=== PATIENT | male | born 1950 | race Two or more races ===

== ENCOUNTER 2024-03-02 20:23 | Inpatient (IN) | payer MEDICARE, MEDICAID ==
[~2024-03-02] VITALS: Ht 162.6 cm; Wt 59.4 kg
[2024-03-02 22:25] LABS: Basophils # (auto) 0 10 ^3/uL (0-0.2); Eosinophils # (auto) 0 10 ^3/uL (0-0.8); Lymphocytes # (auto) 1.4 10 ^3/uL (0.4-5.4); Mean Corpuscular Volume 81.3 fL (80.0-100.0); Monocytes # (auto) 0.5 10 ^3/uL (0-1.3); White Blood Cell 8.9 10^3/uL (4.4-10.8)
[2024-03-02 22:27] LABS: Basophils % (auto) 0.3 % (0.0-2.0); Eosinophils % (auto) 0.2 % (0.0-7.0); Hematocrit 45.9 % (41.0-53.0); Hemoglobin 14.8 g/dL (13.5-17.5); Lymphocytes % (auto) 15.8 % (10.0-50.0); Mean Corpuscular Hemoglobin 26.2 pg (28.0-32.0); Mean Corpuscular Hgb Conc. 32.2 g/dL (32.0-36.0); Monocytes % (auto) 5.4 % (0.0-12.0); Neutrophils % (auto) 78.3 % (37.0-80.0); Nucleated Red Blood Cells % 0.3 %; Red Blood Cells 5.65 10^6/uL (4.5-5.90); Red Cell Distribution Width 17.4 % (11.8-14.3)
[2024-03-02 22:40] LABS: Alanine Aminotransferase 104 U/L (7-40); Alkaline Phosphatase 102 U/L (46-116); Anion Gap 10 (5-15); Aspartate Aminotransferase 166 U/L (13-40); BUN/Creatinine Ratio 14.9 (10.0-20.0); Blood Urea Nitrogen 26 mg/dL (9-23); Calcium 10.3 mg/dL (8.7-10.4); Carbon Dioxide 19 mmol/L (20-30); Chloride 102 mmol/L (98-107); Glucose 112 mg/dL (74-106); Sodium 131 mmol/L (136-145)
[2024-03-02 22:41] LABS: Albumin 4.4 g/dL (3.2-4.8); Total Protein 7.8 g/dL (5.7-8.2)
[2024-03-02 23:04] LABS: Potassium 5.6 mmol/L (3.5-5.1)
[2024-03-03 00:27] VITALS: PULSE 113; RESP 19
[2024-03-03 00:40] LABS: INR 1.5 (0.9-1.15); Prothrombin Time 15.4 sec (9.3-11.8)
[2024-03-03] MEDS: IOHEXOL 350 MG/ML 100ML IJ ONE (01:04)
[2024-03-03] MEDS: FUROSEMIDE 40 MG/4 ML VIAL IV ONE (01:19)
[2024-03-03] MEDS: PIPERACILLIN-TAZOB 3.375GM 100 ML IV ONE (01:20)
[2024-03-03] MEDS ORDERED: LABETALOL HCL 5 MG/ML 4ML SYRINGE IV PRN (04:00)
[2024-03-03] MEDS ORDERED: NITROGLYCERIN 0.4 MG SL TAB SL PRN (04:00)
[2024-03-03] MEDS ORDERED: ACETAMINOPHEN 325 MG TAB PO PRN (04:00)
[2024-03-03] MEDS ORDERED: MORPHINE SULFATE INJ 2 MG/ml SYRG IV PRN (04:00)
[2024-03-03] MEDS: SODIUM ZIRCONIUM CYCL 10 GM PAK PO ONE (04:33)
[2024-03-03] MEDS: LEVOTHYROXINE SODIUM 25 MCG TAB PO SCH (06:15)
[2024-03-03] MEDS ORDERED: ALBUTEROL SULF 2.5 MG/0.5ML(0.5%) NEB SOLN NEB PRN (07:15)
[2024-03-03] MEDS: cefTRIAXone 1GM/50ML D5W 50 ML IV SCH (09:10)
[2024-03-03] MEDS: AZITHROMYCIN 500MG/ 250ML 250 ML IV SCH (09:36)
[2024-03-03] MEDS: CARVEDILOL 12.5 MG TAB PO SCH (09:36)
[2024-03-03] MEDS: ASPirin 81 mg TAB PO SCH (09:36)
[2024-03-03] MEDS: EMPAGLIFLOZIN 10 MG TAB PO SCH (09:37)
[2024-03-03] MEDS: amLODIPine BESYLATE 5 MG TAB PO SCH (09:37)
[2024-03-03] MEDS: levETIRAcetam 500 MG TAB PO SCH (09:37)
[2024-03-03] MEDS: ENOXAPARIN SOD 30 MG/0.3 ML SYRINGE SC SCH (09:37)
[2024-03-03 10:24] VITALS: BP 153/119; PULSE 107; RESP 16; TEMP 98.2; O2SAT 98
[2024-03-03 10:30] VITALS: O2SAT 98
[2024-03-03] MEDS: ONDANSETRON HCL 4 MG/2 ML VIAL IV PRN (12:38)
[2024-03-03 13:34] LABS: Chloride 101 mmol/L (98-107); Potassium 4.9 mmol/L (3.5-5.1); Sodium 133 mmol/L (136-145)
[2024-03-03 13:35] LABS: Anion Gap 11 (5-15); Carbon Dioxide 21 mmol/L (20-30)
[2024-03-03 13:36] LABS: Calcium 9.4 mg/dL (8.7-10.4)
[2024-03-03 13:41] LABS: BUN/Creatinine Ratio 20.4 (10.0-20.0); Glucose 105 mg/dL (74-106)
[2024-03-03 13:49] LABS: Blood Urea Nitrogen 38 mg/dL (9-23)
[2024-03-03] MEDS: TAMSULOSIN HYDROCHLORIDE 0.4 MG CAP PO SCH (17:17)
[2024-03-03] MEDS: FUROSEMIDE 20 MG/2 ML VIAL IV SCH (17:17)
[2024-03-03 19:30] VITALS: PULSE 78; RESP 21; O2SAT 98
[2024-03-03 20:00] VITALS: O2SAT 98
[2024-03-04] VITALS (10 sets, daily range): BP systolic 99–130; BP diastolic 71–93; PULSE 70–79; RESP 14–19; TEMP 97.3–98; O2SAT 92–100
[2024-03-04 06:45] LABS: Urine Bacteria FEW /hpf (None Seen); Urine Blood TRACE /uL (Negative); Urine Clarity Clear (Clear); Urine Color Yellow (Yellow); Urine Protein, UAD TRACE (Negative); Urine Specific Gravity 1.028 (1.001-1.035); Urine Urobilinogen 2 mg/dL (Negative); Urine WBC 1 /hpf (0 - 3); Urine pH 5.5 (5.0-9.0)
[2024-03-04 07:19] LABS: Basophils # (auto) 0 10 ^3/uL (0-0.2); Basophils % (auto) 0.2 % (0.0-2.0); Eosinophils # (auto) 0 10 ^3/uL (0-0.8); Eosinophils % (auto) 0.5 % (0.0-7.0); Hematocrit 41.5 % (41.0-53.0); Hemoglobin 13.5 g/dL (13.5-17.5); Lymphocytes % (auto) 14.6 % (10.0-50.0); Mean Corpuscular Hemoglobin 26.3 pg (28.0-32.0); Mean Corpuscular Hgb Conc. 32.4 g/dL (32.0-36.0); Mean Corpuscular Volume 81.3 fL (80.0-100.0); Monocytes # (auto) 0.4 10 ^3/uL (0-1.3); Neutrophils # (auto) 5.6 10 ^3/uL (1.6-8.6); Neutrophils % (auto) 78.7 % (37.0-80.0); Nucleated Red Blood Cells % 0.1 %; Red Blood Cells 5.11 10^6/uL (4.5-5.90); Red Cell Distribution Width 17.2 % (11.8-14.3); White Blood Cell 7.2 10^3/uL (4.4-10.8)
[2024-03-04 07:39] LABS: Amphetamine Screen, Urine Neg (NEGATIVE); Benzodiazephine Screen, Urine Neg (NEGATIVE)
[2024-03-04 07:40] LABS: Barbiturate Scree,Urine Neg (NEGATIVE); Cocaine Screen, Urine Neg (NEGATIVE); Opiate Scree,Urine Neg (NEGATIVE)
[2024-03-04 07:41] LABS: Cannabinoid Screen, Urine Pos (NEGATIVE); Phencyclidine Screen, Urine Neg (NEGATIVE)
[2024-03-04 07:45] LABS: Alanine Aminotransferase 68 U/L (7-40); Alkaline Phosphatase 83 U/L (46-116); Anion Gap 8 (5-15); BUN/Creatinine Ratio 21.8 (10.0-20.0); Blood Urea Nitrogen 37 mg/dL (9-23); Calcium 8.7 mg/dL (8.5-10.1); Carbon Dioxide 23 mmol/L (20-30); Chloride 102 mmol/L (98-107); Glucose 81 mg/dL (74-106); Potassium 4.4 mmol/L (3.5-5.1); Sodium 133 mmol/L (136-145)
[2024-03-04 07:46] LABS: Albumin 2.9 g/dL (3.2-4.8); Aspartate Aminotransferase 123 U/L (13-40); Bilirubin, Total 1.4 mg/dL (0.2-1.0)
[2024-03-04] MEDS: LISINOPRIL 5 MG TAB PO SCH (15:08)
[2024-03-04] MEDS ORDERED: CARI1CAP PO (16:25)
[2024-03-04] MEDS ORDERED: DAPA1TAB4 PO (16:25)
[2024-03-04] MEDS ORDERED: MIRA50TA OR (16:25)
[2024-03-04] MEDS ORDERED: CHOL20007 OR (16:25)
[2024-03-04] MEDS ORDERED: VERI2.5T PO (16:25)
[2024-03-04] MEDS ORDERED: CARI-578 PO (16:25)
[2024-03-04] MEDS ORDERED: TERI600I SC (16:25)
[2024-03-04] MEDS ORDERED: ASPI1TAB20 PO (16:25)
[2024-03-04] MEDS ORDERED: LINA1CAP2 PO (16:25)
[2024-03-04] MEDS ORDERED: FINE20TA PO (16:25)
[2024-03-04] MEDS ORDERED: FLUT1AER17 IN (16:25)
[2024-03-05] VITALS (10 sets, daily range): BP systolic 97–134; BP diastolic 68–84; PULSE 68–85; RESP 17–20; TEMP 97.4–97.9; O2SAT 93–98
[2024-03-05 05:16] LABS: Anion Gap 9 (5-15); Carbon Dioxide 23 mmol/L (20-30); Chloride 101 mmol/L (98-107); Potassium 3.7 mmol/L (3.5-5.1); Sodium 133 mmol/L (136-145)
[2024-03-05 05:17] LABS: Calcium 8.6 mg/dL (8.7-10.4)
[2024-03-05 05:22] LABS: BUN/Creatinine Ratio 16.7 (10.0-20.0); Blood Urea Nitrogen 27 mg/dL (9-23); Glucose 91 mg/dL (74-106)
[2024-03-05] MEDS ORDERED: FURO1TAB33 PO (14:54)
[2024-03-06 05:00] VITALS: BP 112/78; PULSE 69; RESP 20; TEMP 98.2; O2SAT 97
[2024-03-06 07:15] VITALS: O2SAT 98
[2024-03-06 07:39] LABS: Chloride 100 mmol/L (98-107); Potassium 3.6 mmol/L (3.5-5.1); Sodium 134 mmol/L (136-145)
[2024-03-06 07:40] LABS: Anion Gap 3 (5-15); Calcium 9.1 mg/dL (8.5-10.1); Carbon Dioxide 31 mmol/L (20-30)
[2024-03-06 07:45] LABS: BUN/Creatinine Ratio 16.5 (10.0-20.0); Blood Urea Nitrogen 26 mg/dL (9-23)
[2024-03-06 07:49] LABS: Glucose 38 mg/dL (74-106)
[2024-03-06 08:00] VITALS: PULSE 69; PULSE 73; RESP 20; O2SAT 97
[2024-03-06 09:00] VITALS: BP 96/69; PULSE 79; RESP 18; TEMP 97.7; O2SAT 99
[2024-03-06 10:00] VITALS: BP 96/69; PULSE 67; RESP 16; O2SAT 98; O2SAT 99
[2024-03-06 10:51] VITALS: BP 96/69; PULSE 79; RESP 18; TEMP 97.7; O2SAT 99
== END 2024-03-06 11:30 | disposition home or self-care (01) | DRG 177 ==
LOC: ER 20:23 → TELE 03-03 04:06 → TELE-WESTW 03-03 23:20
PROVIDERS: ADMIT Nurse Practitioner; ATTEND Internal Medicine
DX: J15.69 Pneumonia due to other Gram-negative bacteria (principal); I21.A1 Myocardial infarction type 2; J96.01 Acute respiratory failure with hypoxia; I50.43 Acute on chronic combined systolic (congestive) and diastolic (congestive) heart failure; I13.0 Hypertensive heart and chronic kidney disease with heart failure and stage 1 through stage 4 chronic kidney disease, or unspecified chronic kidney disease; E87.20 Acidosis, unspecified; I24.9 Acute ischemic heart disease, unspecified; I42.0 Dilated cardiomyopathy; J15.9 Unspecified bacterial pneumonia; E87.5 Hyperkalemia; G40.909 Epilepsy, unspecified, not intractable, without status epilepticus; E78.5 Hyperlipidemia, unspecified; E07.9 Disorder of thyroid, unspecified; N18.32 Chronic kidney disease, stage 3b; N40.0 Benign prostatic hyperplasia without lower urinary tract symptoms; I48.91 Unspecified atrial fibrillation; I27.29 Other secondary pulmonary hypertension; Z79.899 Other long term (current) drug therapy
CPT/HCPCS: 36415; 71045; 71275; 80048; 80053; 80307; 80320; 81001; 82962; 83880; 84484; 85025; 85379; 85610; 93005; 93306; 99291; G0378; J2405; J2543

== ENCOUNTER 2024-05-02 10:04 | Inpatient (IN) | payer MEDICARE, MEDICAID ==
[~2024-05-02] VITALS: Ht 172.7 cm; Wt 55.0 kg
[~2024-05-02 10:04] MED LIST: ASPI1TAB20 PO; CARI-578 PO; CARI1CAP PO; CHOL20007 OR; DAPA1TAB4 PO; FINE20TA PO; FLUT1AER17 IN; FURO1TAB33 PO; LINA1CAP2 PO; MIRA50TA OR; TERI600I SC; VERI2.5T PO
[2024-05-02 11:38] LABS: Urine Bacteria None Seen /hpf (None Seen); Urine WBC None Seen /hpf (0 - 3)
[2024-05-02 11:50] LABS: Basophils # (auto) 0 10 ^3/uL (0-0.2)
[2024-05-02 11:50] LABS: Urine Blood Negative /uL (Negative); Urine Clarity Clear (Clear); Urine Color Yellow (Yellow); Urine Protein, UAD TRACE (Negative); Urine Specific Gravity 1.022 (1.001-1.035); Urine Urobilinogen 2 mg/dL (Negative)
[2024-05-02 11:58] LABS: Basophils % (auto) 0.3 % (0.0-2.0); Eosinophils # (auto) 0.1 10 ^3/uL (0-0.8); Eosinophils % (auto) 1.1 % (0.0-7.0); Hematocrit 44.9 % (41.0-53.0); Hemoglobin 13.5 g/dL (13.5-17.5); Lymphocytes # (auto) 1.7 10 ^3/uL (0.4-5.4); Mean Corpuscular Hemoglobin 26.2 pg (28.0-32.0); Mean Corpuscular Hgb Conc. 30.1 g/dL (32.0-36.0); Monocytes # (auto) 0.4 10 ^3/uL (0-1.3); Monocytes % (auto) 7.1 % (0.0-12.0); Neutrophils # (auto) 2.9 10 ^3/uL (1.6-8.6); Neutrophils % (auto) 58.5 % (37.0-80.0); Nucleated Red Blood Cells % 0.2 %; Red Blood Cells 5.16 10^6/uL (4.5-5.90); Red Cell Distribution Width 18.3 % (11.8-14.3)
[2024-05-02 12:02] LABS: Chloride 108 mmol/L (98-107); Sodium 140 mmol/L (136-145)
[2024-05-02 12:03] LABS: Anion Gap 8 (5-15); Calcium 8.8 mg/dL (8.7-10.4); Carbon Dioxide 24 mmol/L (20-30)
[2024-05-02 12:07] LABS: Uric Acid 6.1 mg/dL (3.7-9.2)
[2024-05-02 12:08] LABS: Blood Urea Nitrogen 12 mg/dL (9-23); Glucose 77 mg/dL (74-106)
[2024-05-02] MEDS: FUROSEMIDE 40 MG/4 ML VIAL IV ONE (12:45)
[2024-05-02] MEDS ORDERED: ONDANSETRON HCL 4 MG/2 ML VIAL IV PRN (14:30)
[2024-05-02] MEDS ORDERED: DOCUSATE SOD 100 MG CAP PO PRN (14:30)
[2024-05-02] MEDS ORDERED: ACETAMINOPHEN 325 MG TAB PO PRN (14:30)
[2024-05-02] MEDS: FUROSEMIDE 40 MG/4 ML VIAL IV SCH (18:31)
[2024-05-02] MEDS: SODIUM CHLOR 0.9% PF (SALINE LOCK) 10ML VIAL/SYR IV SCH (18:32)
[2024-05-02] MEDS ORDERED: hydrALAZINE HCL 20 MG/ML VL IV PRN (19:00)
[2024-05-02 23:47] VITALS: BP 148/99; PULSE 87; RESP 18; TEMP 97.8; O2SAT 99
[2024-05-03] VITALS (7 sets, daily range): BP systolic 136–154; BP diastolic 88–106; PULSE 87–91; RESP 17–21; TEMP 97.5–98.1; O2SAT 92–100
[2024-05-03] MEDS ORDERED: QUET100T47 PO (01:32)
[2024-05-03] MEDS ORDERED: ZINC220C8 PO (01:32)
[2024-05-03] MEDS ORDERED: ASCO500T11 GT (01:32)
[2024-05-03] MEDS ORDERED: MEMA1CAP PO (01:32)
[2024-05-03] MEDS ORDERED: EZET10TA22 PO (01:32)
[2024-05-03] MEDS ORDERED: ICOS1CAP OR (01:32)
[2024-05-03] MEDS ORDERED: LOSA-533 PO (01:32)
[2024-05-03] MEDS ORDERED: LEV50T PO (01:32)
[2024-05-03] MEDS ORDERED: FINE20TA PO (01:32)
[2024-05-03] MEDS ORDERED: METO-158 PO (01:32)
[2024-05-03] MEDS ORDERED: TAMS0.4C36 PO (01:32)
[2024-05-03] MEDS ORDERED: DUTA1CAP29 PO (01:32)
[2024-05-03] MEDS ORDERED: DOCU-94 PO (01:32)
[2024-05-03] MEDS: ASPirin-EC 81 mg tab PO SCH (11:33)
[2024-05-03] MEDS: ENOXAPARIN SOD 40 MG/0.4 ML SYRINGE SC SCH (11:33)
[2024-05-03] MEDS: SACUBITRIL-VALSARTAN 24mg/26mg TAB PO SCH (21:48)
[2024-05-04 07:30] VITALS: PULSE 101
[2024-05-04 08:57] LABS: Hepatitis B Surface Antigen Negative (Negative)
[2024-05-04 09:53] LABS: Hepatitis C Antibody Reactive (Negative)
[2024-05-04 10:36] VITALS: BP 86/58; PULSE 86; RESP 16; TEMP 98.1; O2SAT 99
[2024-05-04 13:00] VITALS: BP 120/83; PULSE 84; RESP 16; TEMP 98; O2SAT 100
[2024-05-04 17:00] VITALS: BP 127/90; PULSE 89; RESP 16; TEMP 97.9; O2SAT 100
[2024-05-04 20:00] VITALS: PULSE 93; PULSE 97; RESP 18; O2SAT 96
[2024-05-04 21:00] VITALS: BP 134/90; PULSE 93; RESP 18; TEMP 97.7; O2SAT 96
[2024-05-05 05:00] VITALS: BP 129/98; PULSE 107; RESP 18; TEMP 97.7; O2SAT 96
[2024-05-05 08:00] VITALS: PULSE 92
[2024-05-05 09:00] VITALS: BP 129/91; PULSE 106; RESP 20; TEMP 97.4; O2SAT 100
[2024-05-05 13:00] VITALS: BP 124/87; PULSE 88; RESP 18; TEMP 97.8; O2SAT 94
[2024-05-05] MEDS ORDERED: CARV12.544 PO (15:18)
== END 2024-05-05 12:41 | disposition home or self-care (01) | DRG 291 ==
LOC: ER 10:04 → TELE 14:29 → TELE-WESTW 23:26
PROVIDERS: ADMIT Internal Medicine; ATTEND Internal Medicine
DX: I13.0 Hypertensive heart and chronic kidney disease with heart failure and stage 1 through stage 4 chronic kidney disease, or unspecified chronic kidney disease (principal); I50.43 Acute on chronic combined systolic (congestive) and diastolic (congestive) heart failure; N18.9 Chronic kidney disease, unspecified; E11.22 Type 2 diabetes mellitus with diabetic chronic kidney disease; B19.20 Unspecified viral hepatitis C without hepatic coma; Z79.4 Long term (current) use of insulin; Z79.899 Other long term (current) drug therapy
CPT/HCPCS: 36415; 71046; 80048; 81001; 82607; 82962; 83036; 83880; 84443; 84550; 85025; 86803; 87340; 93970; 96372; G0378

== ENCOUNTER 2024-05-10 13:07 | Inpatient (IN) | payer MEDICARE, MEDICAID ==
[~2024-05-10] VITALS: Ht 177.8 cm; Wt 63.2 kg
[~2024-05-10 13:07] MED LIST changes: +ASCO500T11 PO; +CARV12.544 PO; +DOCU-94 PO; +DUTA1CAP29 PO; +EZET10TA22 PO; +ICOS1CAP OR; +LEV50T PO; +MEMA1CAP PO; +QUET100T47 PO; +SACU1TAB PO; +TAMS0.4C36 PO; +ZINC220C8 PO
[2024-05-10 13:28] VITALS: PULSE 86; RESP 16; O2SAT 96
[2024-05-10] MEDS: IOHEXOL 350 MG/ML 100ML IJ ONE (13:44)
[2024-05-10] MEDS: LORazepam 2MG/ML-1ML VIAL IV ONE (13:48)
[2024-05-10] MEDS: MIDAZOLAM HCL 5 MG/ML-1ML VIAL IV ONE (13:57)
[2024-05-10 14:02] LABS: Basophils # (auto) 0 10 ^3/uL (0-0.2); Basophils % (auto) 0.5 % (0.0-2.0); Eosinophils # (auto) 0.1 10 ^3/uL (0-0.8); Hemoglobin 14.1 g/dL (13.5-17.5); Monocytes # (auto) 0.5 10 ^3/uL (0-1.3); White Blood Cell 6.1 10^3/uL (4.4-10.8)
[2024-05-10 14:05] LABS: Eosinophils % (auto) 1.1 % (0.0-7.0); Hematocrit 45.5 % (41.0-53.0); Lymphocytes # (auto) 3.4 10 ^3/uL (0.4-5.4); Lymphocytes % (auto) 54.9 % (10.0-50.0); Mean Corpuscular Hemoglobin 26.1 pg (28.0-32.0); Mean Corpuscular Volume 84.4 fL (80.0-100.0); Monocytes % (auto) 8.3 % (0.0-12.0); Neutrophils # (auto) 2.2 10 ^3/uL (1.6-8.6); Neutrophils % (auto) 35.2 % (37.0-80.0); Nucleated Red Blood Cells % 0.2 %; Red Blood Cells 5.39 10^6/uL (4.5-5.90); Red Cell Distribution Width 17.2 % (11.8-14.3)
[2024-05-10] MEDS: levETIRAcetam 1000 mg/100ml 100 ML IV ONE (14:12)
[2024-05-10 14:18] LABS: INR 1.05 (0.9-1.15); Partial Thromboplastin Time 25.5 SEC (24.5-34.5); Prothrombin Time 11.1 sec (9.3-11.8)
[2024-05-10 14:20] LABS: Alanine Aminotransferase 36 U/L (7-40); Alkaline Phosphatase 73 U/L (46-116); Anion Gap 15 (5-15); Aspartate Aminotransferase 71 U/L (13-40); BUN/Creatinine Ratio 7.8 (10.0-20.0); Blood Urea Nitrogen 11 mg/dL (9-23); Calcium 9.1 mg/dL (8.7-10.4); Carbon Dioxide 18 mmol/L (20-30); Chloride 106 mmol/L (98-107); Glucose 102 mg/dL (74-106); Magnesium 2.5 mg/dL (1.6-2.6); Potassium 4.4 mmol/L (3.5-5.1); Sodium 139 mmol/L (136-145)
[2024-05-10 14:21] LABS: Bilirubin, Total 0.5 mg/dL (0.2-1.0); Total Protein 6.8 g/dL (5.7-8.2)
[2024-05-10] MEDS: SODIUM CHLORIDE 0.9% 1,000 ML IV ONE (14:50)
[2024-05-10] MEDS: CEFEPIME 2GM/50ML NS 50 ML IV ONE (15:33)
[2024-05-10 16:56] LABS: Urine Bacteria None Seen /hpf (None Seen)
[2024-05-10 17:00] LABS: Urine Blood 2+ /uL (Negative); Urine Clarity Clear (Clear); Urine Color Light-Yellow (Yellow); Urine Protein, UAD 2+ (Negative); Urine Specific Gravity 1.014 (1.001-1.035); Urine Urobilinogen Normal (Negative); Urine WBC 3 /hpf (0 - 3)
[2024-05-10] MEDS ORDERED: ONDANSETRON HCL 4 MG/2 ML VIAL IV PRN (18:30)
[2024-05-10] MEDS ORDERED: DOCUSATE SOD 100 MG CAP PO PRN (18:30)
[2024-05-10] MEDS ORDERED: HYDROmorphone HCL 2 MG/ML VL/or syr IV PRN (18:30)
[2024-05-10 21:50] VITALS: PULSE 66; RESP 24; O2SAT 96
[2024-05-10] MEDS: SODIUM CHLOR 0.9% PF (SALINE LOCK) 10ML VIAL/SYR IV SCH (22:09)
[2024-05-10] MEDS: CARVEDILOL 3.125 MG TAB PO SCH (22:41)
[2024-05-10] MEDS: DOCUSATE SOD 100 MG CAP PO SCH (22:42)
[2024-05-11] MEDS: LEVOTHYROXINE SODIUM 50 MCG TAB PO SCH (07:00)
[2024-05-11 08:00] VITALS: PULSE 104; RESP 12; O2SAT 94
[2024-05-11] MEDS ORDERED: MEMANTINE HCL DONEPEZIL HCL PO SCH (10:00)
[2024-05-11] MEDS: ENOXAPARIN SOD 40 MG/0.4 ML SYRINGE SC SCH (10:53)
[2024-05-11] MEDS: ASPirin-EC 81 mg tab PO SCH (10:54)
[2024-05-11] MEDS: QUEtiapine FUMARATE 100 MG TAB PO SCH (10:54)
[2024-05-11] MEDS: ZINC SULFATE 220mg CAP or TAB PO SCH (10:54)
[2024-05-11 11:37] LABS: Basophils # (auto) 0.1 10 ^3/uL (0-0.2); Basophils % (auto) 0.9 % (0.0-2.0); Eosinophils # (auto) 0 10 ^3/uL (0-0.8); Eosinophils % (auto) 0.7 % (0.0-7.0); Hematocrit 44.1 % (41.0-53.0); Hemoglobin 14.2 g/dL (13.5-17.5); Lymphocytes # (auto) 1.6 10 ^3/uL (0.4-5.4); Lymphocytes % (auto) 22.3 % (10.0-50.0); Mean Corpuscular Hemoglobin 25.8 pg (28.0-32.0); Mean Corpuscular Hgb Conc. 32.2 g/dL (32.0-36.0); Mean Corpuscular Volume 80.2 fL (80.0-100.0); Monocytes # (auto) 0.4 10 ^3/uL (0-1.3); Monocytes % (auto) 5.8 % (0.0-12.0); Neutrophils % (auto) 70.3 % (37.0-80.0); Nucleated Red Blood Cells % 0.1 %; Red Cell Distribution Width 16.6 % (11.8-14.3); White Blood Cell 7.2 10^3/uL (4.4-10.8)
[2024-05-11 12:25] LABS: Chloride 105 mmol/L (98-107); Potassium 4.8 mmol/L (3.5-5.1); Sodium 139 mmol/L (136-145)
[2024-05-11 12:26] LABS: Anion Gap 6 (5-15); Calcium 9.4 mg/dL (8.7-10.4); Carbon Dioxide 28 mmol/L (20-30)
[2024-05-11 12:31] LABS: BUN/Creatinine Ratio 15.5 (10.0-20.0); Blood Urea Nitrogen 18 mg/dL (9-23); Glucose 80 mg/dL (74-106); Triglycerides 55 mg/dL (< 150)
[2024-05-11 12:32] LABS: LDL Cholesterol 33 mg/dL (< 100)
[2024-05-11 12:33] LABS: Cholesterol 109 mg/dL (< 200); HDL Cholesterol 57 mg/dL (40-59)
[2024-05-11] MEDS: FUROSEMIDE 20 MG/2 ML VIAL IV ONE (14:23)
[2024-05-11] MEDS: TAMSULOSIN HYDROCHLORIDE 0.4 MG CAP PO SCH (18:44)
[2024-05-11] MEDS: LORazepam 2MG/ML-1ML VIAL IV ONE (19:59)
[2024-05-11 20:00] VITALS: PULSE 98; RESP 22; O2SAT 100
[2024-05-11] MEDS: HYDROcodone-ACET 5/325MG TAB PO PRN (22:43)
[2024-05-11] MEDS: CARVEDILOL 3.125 MG TAB PO SCH (22:48)
[2024-05-11] MEDS: SACUBITRIL-VALSARTAN 24mg/26mg TAB PO SCH (22:49)
[2024-05-12] VITALS (8 sets, daily range): BP systolic 111–142; BP diastolic 83–112; PULSE 59–96; RESP 17–19; TEMP 96.9–98.1; O2SAT 95–100
[2024-05-12 05:02] LABS: Chloride 103 mmol/L (98-107); Potassium 4.4 mmol/L (3.5-5.1); Sodium 139 mmol/L (136-145)
[2024-05-12 05:03] LABS: Anion Gap 9 (5-15); Carbon Dioxide 27 mmol/L (20-30)
[2024-05-12 05:04] LABS: Calcium 9.6 mg/dL (8.7-10.4)
[2024-05-12 05:08] LABS: BUN/Creatinine Ratio 12.3 (10.0-20.0); Blood Urea Nitrogen 16 mg/dL (9-23); Glucose 112 mg/dL (74-106)
[2024-05-12] MEDS: cloNIDine HCL 0.1 MG TAB PO ONE (06:55)
[2024-05-12] MEDS ORDERED: LORazepam 2MG/ML-1ML VIAL IV PRN (11:00)
[2024-05-12] MEDS: MEMANTINE HCL 5 MG TAB PO SCH (11:17)
[2024-05-12] MEDS: EMPAGLIFLOZIN 10 MG TAB PO SCH (11:17)
[2024-05-12] MEDS: DONEPEZIL HYDROCHLORIDE 5 MG TAB PO SCH (11:18)
[2024-05-12] MEDS: CARVEDILOL 3.125 MG TAB PO SCH (11:20)
[2024-05-12] MEDS: FUROSEMIDE 20 MG/2 ML VIAL IV SCH (11:20)
[2024-05-12] MEDS: SPIRONOLACTONE 25 MG TAB PO SCH (11:20)
[2024-05-12 11:39] LABS: Folate (Folic Acid) 8.26 ng/mL (>5.38)
[2024-05-12] MEDS ORDERED: CARV3.1240 PO (12:01)
[2024-05-12] MEDS ORDERED: POM PO (12:01)
[2024-05-12] MEDS ORDERED: QUET150T16 PO (12:01)
[2024-05-12 16:15] LABS: Urine Bacteria FEW /hpf (None Seen); Urine Blood Negative /uL (Negative); Urine Clarity Clear (Clear); Urine Color Colorless (Yellow); Urine Hyaline Cast FEW /lpf (0 - 2); Urine Protein, UAD Negative (Negative); Urine Specific Gravity 1.007 (1.001-1.035); Urine Urobilinogen Normal (Negative); Urine WBC <1 /hpf (0 - 3); Urine pH 5.5 (5.0-9.0)
[2024-05-13] VITALS (8 sets, daily range): BP systolic 121–139; BP diastolic 92–102; PULSE 79–111; RESP 18–20; TEMP 97.5–98.1; O2SAT 93–100
[2024-05-13] MEDS: ACETAMINOPHEN 325 MG TAB PO PRN (16:54)
[2024-05-13 22:07] LABS: Lactic Acid w/Reflex 2.5 mmol/L (0.4-2.0)
[2024-05-14] VITALS (9 sets, daily range): BP systolic 132–150; BP diastolic 60–105; PULSE 64–91; RESP 16–19; TEMP 97–98.6; O2SAT 94–100
[2024-05-14] MEDS: ADENOSINE 53 MG in GIVE UN-DILUTED 0 ML IV ONE (10:12)
[2024-05-14] MEDS: SACUBITRIL-VALSARTAN 24mg/26mg TAB PO SCH (10:38)
[2024-05-15 01:00] VITALS: BP 131/100; PULSE 82; RESP 21; TEMP 97.8; O2SAT 98
[2024-05-15 05:00] VITALS: BP 136/97; PULSE 79; RESP 16; TEMP 97.9; O2SAT 97
[2024-05-15 08:00] VITALS: PULSE 87
[2024-05-15 08:51] VITALS: BP 140/98; PULSE 87; RESP 16; TEMP 98; O2SAT 93
[2024-05-15] MEDS ORDERED: SPIR25TA PO (11:53)
[2024-05-15] MEDS ORDERED: CARV12.544 PO (11:53)
[2024-05-15] MEDS ORDERED: EMPA1TAB PO (11:53)
[2024-05-15] MEDS ORDERED: FURO1TAB33 PO (11:57)
[2024-05-15 13:00] VITALS: BP 129/94; PULSE 80; RESP 16; TEMP 97.5; O2SAT 98
[2024-05-15 13:21] VITALS: BP 129/94; PULSE 80; RESP 19; TEMP 36.4; O2SAT 95
== END 2024-05-15 14:09 | disposition home or self-care (01) | DRG 70 ==
LOC: ER 13:07 → TELE 18:32 → TELE-CENTR 05-12 08:03
PROVIDERS: ADMIT Internal Medicine; ATTEND Internal Medicine
DX: G93.41 Metabolic encephalopathy (principal); I21.A1 Myocardial infarction type 2; I50.23 Acute on chronic systolic (congestive) heart failure; I42.0 Dilated cardiomyopathy; I13.0 Hypertensive heart and chronic kidney disease with heart failure and stage 1 through stage 4 chronic kidney disease, or unspecified chronic kidney disease; E78.5 Hyperlipidemia, unspecified; E11.22 Type 2 diabetes mellitus with diabetic chronic kidney disease; N18.32 Chronic kidney disease, stage 3b; N40.0 Benign prostatic hyperplasia without lower urinary tract symptoms; E03.9 Hypothyroidism, unspecified; G40.909 Epilepsy, unspecified, not intractable, without status epilepticus; I27.20 Pulmonary hypertension, unspecified; G30.9 Alzheimer's disease, unspecified; F02.80 Dementia in other diseases classified elsewhere, unspecified severity, without behavioral disturbance, psychotic disturbance, mood disturbance, and anxiety; F01.50 Vascular dementia, unspecified severity, without behavioral disturbance, psychotic disturbance, mood disturbance, and anxiety; Z79.82 Long term (current) use of aspirin; Z79.899 Other long term (current) drug therapy; Z86.73 Personal history of transient ischemic attack (TIA), and cerebral infarction without residual deficits
CPT/HCPCS: 36415; 70450; 70496; 71045; 74176; 78452; 80048; 80053; 80061; 81001; 82607; 82746; 83605; 83735; 83880; 84443; 84484; 85025; 85610; 85730; 87081; 93017; 95819; 97110; 97116; 97163; 97530; G0378; J0153; J0692; J2250

== ENCOUNTER 2024-05-23 09:58 | Inpatient (IN) | payer MEDICARE, MEDICAID ==
[~2024-05-23] VITALS: Ht 170.2 cm; Wt 61.7 kg
[~2024-05-23 09:58] MED LIST changes: -CARI-578 PO; -CARI1CAP PO; -CHOL20007 OR; -DAPA1TAB4 PO; +EMPA1TAB PO; -FINE20TA PO; -ICOS1CAP OR; -LEV50T PO; -LINA1CAP2 PO; -MIRA50TA OR; +POM PO; -QUET100T47 PO; +QUET150T16 PO; +SPIR25TA PO; -TAMS0.4C36 PO; +TAMS0.4C39 PO; -TERI600I SC; -VERI2.5T PO
[2024-05-23 11:14] LABS: Basophils # (auto) 0 10 ^3/uL (0-0.2); Hemoglobin 16.4 g/dL (13.5-17.5); Lymphocytes # (auto) 2.3 10 ^3/uL (0.4-5.4); Mean Corpuscular Volume 82.3 fL (80.0-100.0); Monocytes # (auto) 0.5 10 ^3/uL (0-1.3); Neutrophils # (auto) 2.7 10 ^3/uL (1.6-8.6)
[2024-05-23 11:16] LABS: Basophils % (auto) 0.7 % (0.0-2.0); Eosinophils # (auto) 0.1 10 ^3/uL (0-0.8); Hematocrit 50.8 % (41.0-53.0); Mean Corpuscular Hemoglobin 26.5 pg (28.0-32.0); Mean Corpuscular Hgb Conc. 32.2 g/dL (32.0-36.0); Neutrophils % (auto) 48.3 % (37.0-80.0); Nucleated Red Blood Cells % 0.2 %; Platelet Count (auto) 247 10^3/uL (140-450); Red Blood Cells 6.17 10^6/uL (4.5-5.90); Red Cell Distribution Width 16.9 % (11.8-14.3); White Blood Cell 5.5 10^3/uL (4.4-10.8)
[2024-05-23 11:47] LABS: Alanine Aminotransferase 26 U/L (7-40); Albumin 4.5 g/dL (3.2-4.8); Alkaline Phosphatase 68 U/L (46-116); Anion Gap 3 (5-15); Aspartate Aminotransferase 69 U/L (13-40); BUN/Creatinine Ratio 15.3 (10.0-20.0); Bilirubin, Total 0.8 mg/dL (0.2-1.0); Blood Urea Nitrogen 25 mg/dL (9-23); Calcium 10.1 mg/dL (8.7-10.4); Carbon Dioxide 28 mmol/L (20-30); Chloride 104 mmol/L (98-107); Glucose 92 mg/dL (74-106); Sodium 135 mmol/L (136-145)
[2024-05-23 11:48] LABS: Total Protein 7.6 g/dL (5.7-8.2)
[2024-05-23 11:54] LABS: Potassium 5.7 mmol/L (3.5-5.1)
[2024-05-23 12:41] LABS: Urine Bacteria None Seen /hpf (None Seen); Urine WBC None Seen /hpf (0 - 3)
[2024-05-23 12:51] LABS: Urine Blood Negative /uL (Negative); Urine Clarity Clear (Clear); Urine Color Yellow (Yellow); Urine Protein, UAD 1+ (Negative); Urine Specific Gravity 1.022 (1.001-1.035); Urine Urobilinogen Normal (Negative)
[2024-05-23] MEDS ORDERED: NITROGLYCERIN 0.4 MG SL TAB SL PRN (13:15)
[2024-05-23] MEDS ORDERED: DOCUSATE SOD 100 MG CAP PO PRN (13:15)
[2024-05-23] MEDS ORDERED: MORPHINE SULFATE INJ 2 MG/ml SYRG IV PRN (13:15)
[2024-05-23] MEDS ORDERED: ONDANSETRON HCL 4 MG/2 ML VIAL IV PRN (13:15)
[2024-05-23] MEDS: SODIUM ZIRCONIUM CYCL 10 GM PAK PO ONE ×2 (13:30→19:45)
[2024-05-23] MEDS ORDERED: LORazepam 2MG/ML-1ML VIAL IV PRN ×2 (14:15)
[2024-05-23] MEDS: SODIUM CHLORIDE 0.9% 1,000 ML IV SCH (14:30)
[2024-05-23] MEDS: SODIUM CHLORIDE 0.9% 1,000 ML IV ONE (14:30)
[2024-05-23] MEDS: ALBUTEROL SULF 2.5 MG/0.5ML(0.5%) NEB SOLN NEB ONE (14:35)
[2024-05-23] MEDS: LORazepam 2MG/ML-1ML VIAL IV ONE (14:57)
[2024-05-23 15:00] LABS: Hematocrit 52.6 % (41.0-53.0); Hemoglobin 16.3 g/dL (13.5-17.5)
[2024-05-23] MEDS: SODIUM BICARB 8.4% 50Meq/50ml SYR Vial IV ONE (15:07)
[2024-05-23] MEDS: DEXTROSE (50%) 50ML SYRG IV ONE ×2 (15:07→20:00)
[2024-05-23] MEDS: InsuLIN REG 1unit/0.01ml Soln (100units/ml) IV ONE ×2 (15:10→19:45)
[2024-05-23 15:25] LABS: Amphetamine Screen, Urine Neg (NEGATIVE)
[2024-05-23 15:26] LABS: Barbiturate Scree,Urine Neg (NEGATIVE); Benzodiazephine Screen, Urine Neg (NEGATIVE); Cannabinoid Screen, Urine Pos (NEGATIVE); Cocaine Screen, Urine Neg (NEGATIVE); Opiate Scree,Urine Neg (NEGATIVE); Phencyclidine Screen, Urine Neg (NEGATIVE)
[2024-05-23] MEDS: levETIRAcetam 1000 mg/100ml 100 ML IV ONE (15:43)
[2024-05-23 16:43] VITALS: PULSE 88; RESP 22; O2SAT 97
[2024-05-23] MEDS: TAMSULOSIN HYDROCHLORIDE 0.4 MG CAP PO SCH (18:00)
[2024-05-23] MEDS: SODIUM BICARB 8.4% 50Meq/50ml SYR INJ IV ONE (19:45)
[2024-05-23] MEDS: FUROSEMIDE 20 MG/2 ML VIAL IV ONE (19:45)
[2024-05-23 20:00] VITALS: PULSE 74; RESP 15; O2SAT 95
[2024-05-23] MEDS: CALCIUM GLUC 1,000mg/50ml-NS 50 ML IV ONE (20:00)
[2024-05-23] MEDS ORDERED: hydrALAZINE HCL 20 MG/ML VL IV PRN (21:45)
[2024-05-23] MEDS: MEMANTINE HCL DONEPEZIL HCL PO SCH (22:00)
[2024-05-23] MEDS: DUTASTERIDE 0.5 MG PO SCH (22:00)
[2024-05-23] MEDS: ASPirin-EC 81 mg tab PO SCH (22:00)
[2024-05-23] MEDS: DOCUSATE ORAL LIQUID 100 MG/10 ML UD PO SCH (22:00)
[2024-05-23] MEDS ORDERED: SACUBITRIL-VALSARTAN 24mg/26mg TAB PO SCH (22:00)
[2024-05-23] MEDS: CARVEDILOL 12.5 MG TAB PO SCH (22:00)
[2024-05-24 08:24] LABS: Alanine Aminotransferase 28 U/L (7-40); Albumin 4.9 g/dL (3.2-4.8); Alkaline Phosphatase 80 U/L (46-116); Anion Gap 6 (5-15); Aspartate Aminotransferase 68 U/L (13-40); BUN/Creatinine Ratio 12.4 (10.0-20.0); Bilirubin, Total 1.5 mg/dL (0.2-1.0); Blood Urea Nitrogen 19 mg/dL (9-23); Carbon Dioxide 28 mmol/L (20-30); Chloride 102 mmol/L (98-107); Glucose 51 mg/dL (74-106); Potassium 5.3 mmol/L (3.5-5.1); Sodium 136 mmol/L (136-145); Total Protein 8.7 g/dL (5.7-8.2)
[2024-05-24 08:52] LABS: Basophils # (auto) 0.1 10 ^3/uL (0-0.2); Basophils % (auto) 0.5 % (0.0-2.0); Eosinophils # (auto) 0 10 ^3/uL (0-0.8); Eosinophils % (auto) 0.4 % (0.0-7.0); Hematocrit 59.4 % (41.0-53.0); Hemoglobin 18.5 g/dL (13.5-17.5); Lymphocytes % (auto) 26.9 % (10.0-50.0); Mean Corpuscular Hemoglobin 25.6 pg (28.0-32.0); Mean Corpuscular Hgb Conc. 31.2 g/dL (32.0-36.0); Monocytes # (auto) 1.5 10 ^3/uL (0-1.3); Monocytes % (auto) 12.9 % (0.0-12.0); Neutrophils # (auto) 6.7 10 ^3/uL (1.6-8.6); Neutrophils % (auto) 59.3 % (37.0-80.0); Nucleated Red Blood Cells % 0.3 %; Platelet Count (auto) 246 10^3/uL (140-450); Red Blood Cells 7.24 10^6/uL (4.5-5.90); Red Cell Distribution Width 16.9 % (11.8-14.3); White Blood Cell 11.3 10^3/uL (4.4-10.8)
[2024-05-24 09:00] VITALS: PULSE 74; RESP 15; O2SAT 95
[2024-05-24] MEDS ORDERED: FUROSEMIDE 20 MG TAB PO SCH (10:00)
[2024-05-24] MEDS ORDERED: SPIRONOLACTONE 25 MG TAB PO SCH (10:00)
[2024-05-24] MEDS: SODIUM ZIRCONIUM CYCL 10 GM PAK PO SCH (10:07)
[2024-05-24] MEDS: FUROSEMIDE 20 MG/2 ML VIAL IV SCH (10:08)
[2024-05-24] MEDS: ASCORBIC ACID 500 MG TAB PO SCH (10:23)
[2024-05-24] MEDS: ZINC SULFATE 220mg CAP or TAB PO SCH (11:50)
[2024-05-24] MEDS: SODIUM ZIRCONIUM CYCL 10 GM PAK PO ONE (14:04)
[2024-05-24 15:01] LABS: Lactic Acid w/Reflex 2.2 mmol/L (0.4-2.0)
[2024-05-24] MEDS: SODIUM CHLORIDE 0.9% 500 ML IV ONE (15:45)
[2024-05-24] MEDS ORDERED: VANCOMYCIN PER PHARMACY 0 MG IV SCH (16:00)
[2024-05-24] MEDS: VANCOMYCIN 1GM/200ML 200 ML IV ONE (17:15)
[2024-05-24] MEDS: PIPERACILLIN-TAZOB 3.375GM 100 ML IV SCH (22:42)
[2024-05-25] VITALS (7 sets, daily range): BP systolic 99–168; BP diastolic 65–97; PULSE 61–72; RESP 16–20; TEMP 97.9–98.3; O2SAT 90–100
[2024-05-25 09:12] LABS: Basophils # (auto) 0 10 ^3/uL (0-0.2); Basophils % (auto) 0.3 % (0.0-2.0); Eosinophils # (auto) 0 10 ^3/uL (0-0.8); Eosinophils % (auto) 0.7 % (0.0-7.0); Hematocrit 44.9 % (41.0-53.0); Hemoglobin 14.6 g/dL (13.5-17.5); Lymphocytes # (auto) 1.9 10 ^3/uL (0.4-5.4); Lymphocytes % (auto) 35.7 % (10.0-50.0); Mean Corpuscular Hemoglobin 26.1 pg (28.0-32.0); Mean Corpuscular Hgb Conc. 32.4 g/dL (32.0-36.0); Mean Corpuscular Volume 80.7 fL (80.0-100.0); Monocytes # (auto) 0.4 10 ^3/uL (0-1.3); Monocytes % (auto) 6.9 % (0.0-12.0); Neutrophils # (auto) 3.1 10 ^3/uL (1.6-8.6); Neutrophils % (auto) 56.4 % (37.0-80.0); Nucleated Red Blood Cells % 0.2 %; Platelet Count (auto) 199 10^3/uL (140-450); Red Blood Cells 5.56 10^6/uL (4.5-5.90); Red Cell Distribution Width 16.3 % (11.8-14.3); White Blood Cell 5.4 10^3/uL (4.4-10.8)
[2024-05-25 09:51] LABS: Chloride 104 mmol/L (98-107); Potassium 4.2 mmol/L (3.5-5.1); Sodium 137 mmol/L (136-145)
[2024-05-25 09:52] LABS: Anion Gap 0 (5-15); Calcium 8.8 mg/dL (8.7-10.4); Carbon Dioxide 33 mmol/L (20-30)
[2024-05-25 09:57] LABS: BUN/Creatinine Ratio 11.5 (10.0-20.0); Blood Urea Nitrogen 18 mg/dL (9-23); Glucose 144 mg/dL (74-106)
[2024-05-25] MEDS: levETIRAcetam 500 MG TAB PO ONE (13:35)
[2024-05-25] MEDS: VANCOMYCIN 1GM/200ML 200 ML IV ONE (13:35)
[2024-05-25] MEDS: levETIRAcetam 500 MG TAB PO SCH (21:33)
[2024-05-26] VITALS (8 sets, daily range): BP systolic 102–127; BP diastolic 66–90; PULSE 58–71; RESP 16–18; TEMP 97.6–98.2; O2SAT 94–100
[2024-05-26 06:37] LABS: Anion Gap 5 (5-15); Carbon Dioxide 25 mmol/L (20-30); Chloride 104 mmol/L (98-107); Sodium 134 mmol/L (136-145)
[2024-05-26 06:38] LABS: Basophils # (auto) 0 10 ^3/uL (0-0.2); Calcium 8.4 mg/dL (8.7-10.4); Eosinophils # (auto) 0.1 10 ^3/uL (0-0.8); Hemoglobin 14.1 g/dL (13.5-17.5); Monocytes # (auto) 0.5 10 ^3/uL (0-1.3)
[2024-05-26 06:40] LABS: Basophils % (auto) 0.4 % (0.0-2.0); Eosinophils % (auto) 1.3 % (0.0-7.0); Hematocrit 43.8 % (41.0-53.0); Lymphocytes # (auto) 2.1 10 ^3/uL (0.4-5.4); Lymphocytes % (auto) 42.1 % (10.0-50.0); Mean Corpuscular Hemoglobin 26.1 pg (28.0-32.0); Mean Corpuscular Hgb Conc. 32.3 g/dL (32.0-36.0); Mean Corpuscular Volume 80.9 fL (80.0-100.0); Monocytes % (auto) 9.3 % (0.0-12.0); Neutrophils # (auto) 2.4 10 ^3/uL (1.6-8.6); Neutrophils % (auto) 46.9 % (37.0-80.0); Nucleated Red Blood Cells % 0.2 %; Platelet Count (auto) 191 10^3/uL (140-450); Red Blood Cells 5.41 10^6/uL (4.5-5.90)
[2024-05-26 06:43] LABS: BUN/Creatinine Ratio 9.6 (10.0-20.0); Blood Urea Nitrogen 12 mg/dL (9-23); Glucose 74 mg/dL (74-106)
[2024-05-26 07:07] LABS: RPR Non Reactive (Non Reactive)
[2024-05-26] MEDS ORDERED: KEP500T PO (13:14)
[2024-05-27] VITALS: BP 144/90; PULSE 67; RESP 18; TEMP 97.9; O2SAT 100
[2024-05-27 05:00] VITALS: BP 144/90; PULSE 67; RESP 18; TEMP 97.9; O2SAT 100
[2024-05-27 08:00] VITALS: PULSE 81
[2024-05-27 08:32] VITALS: BP 107/80; PULSE 71; RESP 18; TEMP 98.3; O2SAT 100
[2024-05-27] MEDS ORDERED: FURO1TAB33 PO (11:05)
[2024-05-27] MEDS ORDERED: ASPI1TAB20 PO (11:05)
[2024-05-27] MEDS ORDERED: MEMA1CAP PO (11:05)
[2024-05-27] MEDS ORDERED: DUTA1CAP29 PO (11:05)
[2024-05-27] MEDS ORDERED: CARV12.544 PO (11:05)
[2024-05-27] MEDS ORDERED: DOCU-94 PO (11:05)
[2024-05-27] MEDS ORDERED: EMPA1TAB PO (11:05)
[2024-05-27] MEDS ORDERED: ASCO500T11 PO (11:05)
[2024-05-27] MEDS ORDERED: FLUT1AER17 IN (11:05)
[2024-05-27] MEDS ORDERED: EZET10TA22 PO (11:05)
[2024-05-27 13:08] VITALS: BP 101/64; PULSE 72; RESP 18; TEMP 97.9; O2SAT 100
[2024-05-27] MEDS ORDERED: SACU1TAB PO (15:52)
[2024-05-27] MEDS ORDERED: TAMS0.4C39 PO (15:52)
[2024-05-27] MEDS ORDERED: QUET150T16 PO (15:52)
[2024-05-27] MEDS ORDERED: ZINC220C8 PO (15:52)
[2024-05-27] MEDS ORDERED: SPIR25TA PO (15:52)
[2024-05-27 16:19] VITALS: BP 101/64; PULSE 72; TEMP 36.6
== END 2024-05-27 17:03 | disposition home health service (06) | DRG 100 ==
LOC: ER 10:00 → OVERFLOW 13:16 → WEST WING 05-25 04:10 → TELE-WESTW 05-26 22:43
PROVIDERS: ADMIT Internal Medicine Geriatric Medicine; ATTEND Emergency Medicine
DX: G40.909 Epilepsy, unspecified, not intractable, without status epilepticus (principal); N17.0 Acute kidney failure with tubular necrosis; I13.0 Hypertensive heart and chronic kidney disease with heart failure and stage 1 through stage 4 chronic kidney disease, or unspecified chronic kidney disease; I50.42 Chronic combined systolic (congestive) and diastolic (congestive) heart failure; E78.5 Hyperlipidemia, unspecified; E87.5 Hyperkalemia; F03.90 Unspecified dementia, unspecified severity, without behavioral disturbance, psychotic disturbance, mood disturbance, and anxiety; N18.31 Chronic kidney disease, stage 3a; E03.9 Hypothyroidism, unspecified; R74.01 Elevation of levels of liver transaminase levels; N40.0 Benign prostatic hyperplasia without lower urinary tract symptoms; E11.22 Type 2 diabetes mellitus with diabetic chronic kidney disease; Z86.73 Personal history of transient ischemic attack (TIA), and cerebral infarction without residual deficits; Z83.3 Family history of diabetes mellitus; Z79.82 Long term (current) use of aspirin; F12.10 Cannabis abuse, uncomplicated; D72.829 Elevated white blood cell count, unspecified; G24.01 Drug induced subacute dyskinesia
CPT/HCPCS: 36415; 70450; 71045; 76775; 80048; 80053; 80202; 80307; 80320; 81001; 82550; 82962; 83605; 83735; 84132; 84484; 85014; 85018; 85025; 86592; 87040; 87081; 87086; 94640; 96361; 96374; 96375; 97163; G0378; J1815; J2543

== ENCOUNTER → 2024-08-05 | Outpatient (CLI) | payer MEDICARE, MEDICAID ==
[~2024-08-05] MED LIST changes: +KEP500T PO
[2024-08-05 16:03] LABS: Basophils # (auto) 0 10 ^3/uL (0-0.2); Basophils % (auto) 0.7 % (0.0-2.0); Hemoglobin 14.4 g/dL (13.5-17.5); Monocytes # (auto) 0.6 10 ^3/uL (0-1.3); Neutrophils # (auto) 3.8 10 ^3/uL (1.6-8.6)
[2024-08-05 16:04] LABS: Eosinophils # (auto) 0.2 10 ^3/uL (0-0.8); Eosinophils % (auto) 2.2 % (0.0-7.0); Hematocrit 44.3 % (41.0-53.0); Lymphocytes # (auto) 2.2 10 ^3/uL (0.4-5.4); Mean Corpuscular Hemoglobin 25.8 pg (28.0-32.0); Mean Corpuscular Hgb Conc. 32.6 g/dL (32.0-36.0); Mean Corpuscular Volume 79.1 fL (80.0-100.0); Neutrophils % (auto) 56.1 % (37.0-80.0); Nucleated Red Blood Cells % 0.2 %; Platelet Count (auto) 201 10^3/uL (140-450); Red Cell Distribution Width 16.2 % (11.8-14.3); White Blood Cell 6.8 10^3/uL (4.4-10.8)
[2024-08-05 16:41] LABS: Alanine Aminotransferase 34 U/L (7-40); Alkaline Phosphatase 66 U/L (46-116); Anion Gap 6 (5-15); Aspartate Aminotransferase 66 U/L (13-40); BUN/Creatinine Ratio 16.7 (10.0-20.0); Blood Urea Nitrogen 25 mg/dL (9-23); Calcium 11.2 mg/dL (8.7-10.4); Carbon Dioxide 29 mmol/L (20-31); Chloride 99 mmol/L (98-107); Glucose 89 mg/dL (74-106); Potassium 4.3 mmol/L (3.5-5.1); Sodium 134 mmol/L (136-145)
[2024-08-05 16:42] LABS: Albumin 5.2 g/dL (3.2-4.8); Bilirubin, Total 0.4 mg/dL (0.2-1.0); Total Protein 9.5 g/dL (5.7-8.2)
[2024-08-05 16:46] LABS: INR 1.01 (0.9-1.15); Prothrombin Time 10.7 sec (9.3-11.8)
[2024-08-06 09:06] LABS: AFP Serum Tumor Marker 3.8 ng/mL (0.0-8.4)
[2024-08-06 12:07] LABS: Anti-Nuclear Antibody Direct Positive (Negative)
[2024-08-06 13:26] LABS: Hepatitis A Total Antibody Positive (Negative)
[2024-08-06 13:27] LABS: Hepatitis B Surface Antibody Positive (Negative)
[2024-08-06 13:28] LABS: Hepatitis B Surface Antigen Negative (Negative)
[2024-08-06 13:32] LABS: Hepatitis C Antibody Positive (Negative)
[2024-08-06 13:33] LABS: Hepatitis B Core Total AB Positive (Negative)
== END | disposition home or self-care (01) ==
LOC: LAB 15:09
PROVIDERS: ATTEND Internal Medicine Gastroenterology
DX: R94.5 Abnormal results of liver function studies (principal); B18.2 Chronic viral hepatitis C
CPT/HCPCS: 36415; 80053; 82105; 82728; 85025; 85610; 86038; 86704; 86706; 86708; 86803; 87340; 87902

== ENCOUNTER 2024-11-15 13:28 | Emergency (ER) | payer MEDICARE, MEDICAID ==
[~2024-11-15] VITALS: Ht 165.1 cm; Wt 88.0 kg
--- NOTE | 2024-11-15 13:47 | ED.PDOC ---
Niesha. trauma (HPI) HPI Comments 74 y.o male with PMHx of HTN, presents to the ED for a chief complaint of left sided rib pain s/p mechanical fall today. Patient reports walking into his restroom, tripped and fell onto the edge of his bathtub, landing on his left ribs. Patient denies any LOC, nausea, vomiting, prior lightheadedness, chest pain or SOB. Patient reports previous falls with right rib fractures. Time Seen by MD: 13:41 Primary Care Provider: unknown Reviewed notes: Nurses Notes, Medications, Allergies Allergies: Coded Allergies: NO KNOWN ALLERGIES (Unverified , 03/02/24) Home Meds Active Scripts Spironolactone (Aldactone) 25 Mg Tab, 25 MG PO DAILY for 30 Days, #30 TAB 5 Refills Prov:KELVIN CHA [facility] 05/27/24 Quetiapine Fumarate (Quetiapine Fumarate ER) 150 Mg Tab, 150 MG PO HS for 30 Days, #30 TAB 2 Refills Prov:KELVIN CHA [facility] 05/27/24 Sacubitril-Valsartan (Entresto 24-26 mg) 1 Tab Tab, 1 TAB PO BID for 30 Days, #60 TAB 2 Refills Prov:KELVIN CHA [facility] 05/27/24 Zinc Sulfate (Zinc Sulfate) 220 Mg Cap, 50 MG PO DAILY for 30 Days, #30 MG 2 Refills Prov:KELVIN [facility]A [facility] 05/27/24 Tamsulosin Hcl (Tamsulosin Hcl) 0.4 Mg Cap, 0.4 MG PO QPM for 30 Days, #30 MG 2 Refills Prov:KELVIN CHA [facility] 05/27/24 Furosemide (Lasix) 20 Mg Tb, 1 TAB PO DAILY for 30 Days, #30 TAB 2 Refills Prov:KELVIN CHA [facility] 05/27/24 Carvedilol (Carvedilol) 12.5 Mg Tab, 1 TAB PO BID for 30 Days, #60 TAB 2 Refills Prov:KELVIN CHA [facility] 05/27/24 Empagliflozin (Jardiance) 10 Mg Tab, 10 MG PO DAILY for 30 Days, #30 TAB 5 Refills Prov:KELVIN CHA [facility] 05/27/24 Ezetimibe (Zetia) 10 Mg Tab, 10 MG PO HS for 30 Days, #30 TAB 2 Refills Prov:KELVIN CHA [facility] 05/27/24 Ascorbic Acid (VITAMIN C TABLET) 500 Mg Tb, 1000 MG PO DAILY for 30 Days, #60 TAB Prov:KELVIN CHA [facility] 05/27/24 Memantine HCl-Donepezil HCl (Namzaric 14-10 mg) 1 Cap Cap, 1 CAP PO HS for 30 Days, #30 CAP Prov:KELVIN CHA [facility] 05/27/24 Dutasteride (Dutasteride) 0.5 Mg Cap, 0.5 MG PO HS for 30 Days, #30 CAP 1 Refill Prov:KELVIN CHA [facility] 05/27/24 Docusate Sodium (Colace) 100 Mg Cap, 250 MG PO HS for 30 Days, #30 CAP Prov:KELVIN CHA [facility] 05/27/24 Tlpiopzefay-Wrfczgjgineo-Pmryi (Trelegy Ellipta 200-62.5-25 Mcg/INH) 1 Aer Aer, 1 AER IN PRN for 30 Days, #1 AER 2 Refills Prov:KELVIN CHA [facility] 05/27/24 Aspirin (Aspir-81) 81 Mg Tab, 81 MG PO HS for 30 Days, #30 TAB 2 Refills Prov:KELVIN CHA [facility] 05/27/24 Levetiracetam (KEPPRA TABLET) 500 Mg Tb, 500 MG PO BID for 30 Days, #60 TAB Prov:KELVIN CHA [facility] 05/26/24 Reported Medications Patients Own Medication (PATIENTS OWN MEDICATION) ., 1 MG PO BID, #2 PTS OWN MED-OBTAIN FROM PT AND SEND TO RX DRUG: viscera-3: 1mg cap x2caps FREQ: bid RX# EXP: DATE DISP: TECH: [facility]: 05/12/24 Information Source: Patient Mode of Arrival: Wheelchair Severity: Moderate Timing: Hours Duration: Since onset Location: Other Mechanism: Fall Associated signs and symtoms: Other Past Medical History PAST MEDICAL HISTORY: CHF, CKF, DM, HTN Surgical History: Denies all surgeries Family History Family History: Reviewed,noncontributory to illness Social History Smoker: Non-Smoker Alcohol: Denies ETOH Use Drugs: Marijuana Lives In: Home Constitutional: denies: chills, diaphoresis, fatigue, fever, malaise, sweats, weakness, others EENTM: denies: blurred vision, double vision, ear bleeding, ear discharge, ear drainage, ear pain, ear ringing, eye pain, eye redness, hearing loss, mouth pain, mouth swelling, nasal discharge, nose bleeding, nose congestion, nose pain, photophobia, tearing, throat pain, throat swelling, voice changes, others Respiratory: denies: cough, hemoptysis, orthopnea, SOB at rest, shortness of breath, SOB with excertion, stridor, wheezing, others Cardiovascular: denies: chest pain, dizzy spells, diaphoresis, Dyspnea on exertion, edema, irregular heart beat, left arm pain, lightheadedness, palpitations, PND, syncope, others Gastrointestinal: denies: abdomen distended, abdominal pain, blood streaked bowels, constipated, diarrhea, dysphagia, difficulty swallowing, hematemesis, melena, nausea, poor appetite, poor fluid intake, rectal bleeding, rectal pain, vomiting, others Genitourinary: denies: burning, dysuria, flank pain, frequency, hematuria, incontinence, penile discharge, penile sore, pain, testicle pain, testicle swelling, urgency, others Neurological: denies: dizziness, fainting, headache, left sided numbness, left sided weakness, numbness, paresthesia, pre-existing deficit, right sided numbness, right sided weakness, seizure, speech problems, tingling, tremors, weakness, others Musculoskeletal: reports: others (left sided rib pain ); denies: back pain, gout, joint pain, joint swelling, muscle pain, muscle stiffness, neck pain Integumetry: denies: bruises, change in color, change in hair/nails, dryness, laceration, lesions, lumps, rash, wounds, others Allergic/Immunocompromised: denies: Difficulty Healing, Frequent Infections, Hives, Itching, others Hematologic/Lymphatic: denies: anemia, blood clots, easy bleeding, easy bruising, swollen glands, others Endocrine: denies: excessive hunger, excessive sweating, excessive thirst, excessive urination, flushing, intolerance to cold, intolerance to heat, unexplained weight gain, unexplained weight loss, others Psychiatric: denies: anxiety, bipolar disorder, depression, hopeless, panic disorder, schizophrenia, sleepless, suicidal, others All Other Systems: Reviewed and Negative Physical Exam General Appearance: No Apparent Distress HEENT: Cornea (L), Normal ENT Inspection, Pharynx Normal, TMs Normal Neck: Full Range of Motion, Non-Tender, Normal, Normal Inspection Respiratory: Lungs Clear, No Accessory Muscle Use, No Respiratory Distress, Normal Breath Sounds, Other (Tenderness to the left lateral chest area over the ribs) Cardiovascular: No Edema, No JVD, No Murmur, No Gallop, Normal Peripheral Pulses, Regular Rate/Rhythm Breast Exam: Deferred Gastrointestinal: No Organomegaly, Non Tender, No Pulsatile Mass, Normal Bowel Sounds, Soft Genitalia: Deferred Pelvic: Deferred Rectal: Deferred Extremities: No calf tenderness, Normal capillary refill, Normal inspection, Normal range of motion, Non-tender, No pedal edema Musculoskeletal : Apperance: Normal Neurologic: Alert, editor department II-XII nml as Tested, No Motor Deficits, Normal Affect, Normal Mood, No Sensory Deficits Cerebellar Function: Normal Reflexes: Normal Skin: Dry, Normal Color, Warm Lymphatic: No Adenopathy Was a procedure done? Was a procedure done?: No Differential Diagnosis Multiple Trauma: Closed Head Injury, Fractures, Contusion X-Ray, Labs, Meds, VS Vital Signs Date Time Temp Pulse Resp B/P (MAP) Pulse Ox O2 Delivery O2 Flow Rate FiO2 11/15/24 13:49 97.9 80 17 139/82 (101) 99 11/15/24 13:48 Room Air 0 EXAMINATION: XY L RIB X RA IMPRESSION: No acute cardiopulmonary disease. Chronic appearing left lateral 6th rib fracture. Superimposed acute injury is not excluded. Recommend correlation with point tenderness. The patient was being discharged The patient was given [place] here in the emergency department's The patient was given a prescription of [place] The patient will return to the emergency department's condition worsens Images Reviewed?: Images reviewed and evaluated by me Time of 1ST Reevaluation: 13:44 Reevaluation 1ST: Unchanged Patient Education/Counseling: Diagnosis, Treatment, Prognosis, Need For Follow Up Family Education/Counseling: No Family Present Departure 1 Departure Time of Disposition: 15:58 Impression: Primary Impression: Left rib fracture Qualified Codes: S22.32XA - Fracture of one rib, left side, initial encounter for closed fracture Additional Impression: History of fall Disposition: HOME / SELF CARE / HOMELESS Condition: Fair Discharged With: Self Critical Care Note Critical Care Time?: No Stability Stability form required: No I personally scribed for MARIE GOMES MD ([email or web address]) on 11/15/24 at 13:47. Electronically submitted by Pat Barker ([facility]). I personally scribed for MARIE GOMES MD ([email or web address]) on 11/15/24 at 15:31. Electronically submitted by Pat Barker ([facility]). AMRIE GOMES MD Nov 15, 2024 13:47
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
[2024-11-15] MEDS ORDERED: HYDR-4902 PO (16:00)
[2024-11-15] MEDS: HYDROcodone-ACET 5/325MG TAB PO ONE (16:09)
[2024-11-15 16:32] VITALS: BP 139/84; PULSE 89; RESP 18; TEMP 97.9; O2SAT 99
== END 2024-11-15 16:37 | disposition home or self-care (01) ==
LOC: ER 13:28
DX: S22.32XA Fracture of one rib, left side, initial encounter for closed fracture (principal); I13.0 Hypertensive heart and chronic kidney disease with heart failure and stage 1 through stage 4 chronic kidney disease, or unspecified chronic kidney disease; E11.22 Type 2 diabetes mellitus with diabetic chronic kidney disease; N18.9 Chronic kidney disease, unspecified; I50.9 Heart failure, unspecified; Z79.82 Long term (current) use of aspirin; Z79.84 Long term (current) use of oral hypoglycemic drugs; Z79.899 Other long term (current) drug therapy; W01.0XXA Fall on same level from slipping, tripping and stumbling without subsequent striking against object, initial encounter; Y93.01 Activity, walking, marching and hiking; Y92.89 Other specified places as the place of occurrence of the external cause; Y99.8 Other external cause status
CPT/HCPCS: 71101

== ENCOUNTER → 2024-12-02 | Outpatient (CLI) | payer MEDICARE, MEDICAID ==
[~2024-12-02] MED LIST changes: +HYDR-4902 PO
== END | disposition home or self-care (01) ==
LOC: LAB 11:26
PROVIDERS: ATTEND Urology
DX: R97.20 Elevated prostate specific antigen [PSA] (principal)
CPT/HCPCS: 84153

== ENCOUNTER 2025-05-07 12:05 | Inpatient (IN) | payer MEDICARE, MEDICAID ==
[~2025-05-07] VITALS: Ht 172.7 cm; Wt 67.6 kg
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
--- NOTE | 2025-05-07 13:10 | DVH ---
CHEST RADIOGRAPH Indication: cough Technique: Single frontal view of the chest was obtained COMPARISON: XY CHEST XRAY 1 VIEW on DOS: 05/23/24, XY CHEST PORTABLE on DOS: 05/12/24, XY CHEST PORTABLE on DOS: 05/10/24, XY CHEST TWO VIEWS ROUTINE on DOS: 05/02/24, XY CHEST XRAY 1 VIEW on DOS: 03/05/24 FINDINGS: Lines and Tubes: None Lungs: Clear Pleura: No effusion. No pneumothorax. Cardiomediastinal contours: Unremarkable Bones: Unremarkable IMPRESSION: No acute disease.
[2025-05-07 13:18] LABS: Urine Protein, UAD Negative (Negative)
[2025-05-07 13:35] LABS: Hematocrit 53.1 % (41.0-53.0); Hemoglobin 17.3 g/dL (13.5-17.5); Mean Corpuscular Hemoglobin 26.2 pg (28.0-32.0); Mean Corpuscular Volume 80.5 fL (80.0-100.0); Nucleated Red Blood Cells % 0.3 %
[2025-05-07 14:01] LABS: Alanine Aminotransferase 36 U/L (7-40); Albumin 5.5 g/dL (3.2-4.8); Alkaline Phosphatase 62 U/L (46-116); Anion Gap 13 (5-15); BUN/Creatinine Ratio 22.4 (10.0-20.0); Bilirubin, Total 0.5 mg/dL (0.2-1.0); Blood Urea Nitrogen 50 mg/dL (9-23); Calcium 10.7 mg/dL (8.7-10.4); Carbon Dioxide 22 mmol/L (20-31); Chloride 99 mmol/L (98-107); Glucose 101 mg/dL (74-106); Potassium 4.8 mmol/L (3.5-5.1); Sodium 134 mmol/L (136-145); Total Protein 9.1 g/dL (5.7-8.2)
[2025-05-07] MEDS: MORPHINE SULFATE 4 MG/ML SYR/VIAL IV ONE (15:54)
[2025-05-07] MEDS: ONDANSETRON HCL 4 MG/2 ML VIAL IV ONE (15:54)
[2025-05-07] MEDS: PANTOPRAZOLE 40 MG TAB PO ONE (23:15)
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
[2025-05-07] MEDS ORDERED: ONDANSETRON HCL 4 MG/2 ML VIAL IM PRN (23:30)
[2025-05-08] VITALS (10 sets, daily range): BP systolic 128–143; BP diastolic 89–96; PULSE 84–103; RESP 15–28; TEMP 97.5–98.2; O2SAT 96–100
[2025-05-08 00:01] LABS: Amphetamine Screen, Urine Neg (NEGATIVE); Barbiturate Scree,Urine Neg (NEGATIVE); Benzodiazephine Screen, Urine Neg (NEGATIVE); Cannabinoid Screen, Urine Pos (NEGATIVE); Cocaine Screen, Urine Neg (NEGATIVE); Opiate Scree,Urine Neg (NEGATIVE); Phencyclidine Screen, Urine Neg (NEGATIVE)
--- NOTE | 2025-05-08 00:41 | DVH ---
Exam: CT CT AB PEL WITH IV CON ONLY History: Abdominal pain COMPARISON: CT CT AB PEL WO CON-NO ORAL OR IV on DOS: 05/13/24 Technique: Multidetector spiral CT of the abdomen and pelvis was performed from lung bases to pubic s ymphysis. Intravenous contrast was administered during this examination. Portal venous imaging was o btained. Axial, coronal and sagittal multiplanar reformats were performed by the technologist on a [employer] workstation. Radiation Dose : 1. Abdomen/Pelvis: CTDIvol 6.4 mGy, DLP 373.4 mGy*cm. Findings: Lung Bases: No acute findings. Coronary atherosclerosis. Liver: Diffuse hypo enhancement relative to the spleen. Gallbladder and Biliary Tree: Layering stone in the gallbladder. No evidence of ductal dilation or w all thickening. Spleen: Inferiorly adjacent calcification. Pancreas: Mild atrophy. Adrenal Glands: Unremarkable Kidneys: No acute findings. Left inferior renal pole scarring. Bladder: Nondistended, unremarkable. Bowel: Normal caliber without wall thickening. No evidence of appendicitis. Ascites: Absent Lymphadenopathy: No mesenteric, retroperitoneal or periportal lymphadenopathy. Abdominal Wall and Mesentery: Unremarkable. Vasculature: Moderate atherosclerosis. Pelvic Organs: Mild prostatomegaly. Musculoskeletal: No acute osseous finding. Degenerative changes of the spine and pelvis. IMPRESSION: 1. No acute abdominopelvic abnormality. 2. Mild prostatomegaly. Additional chronic and incidental findings above. Radiation optimization: All CT scans at this facility use at least one of these dose optimization ramin hniques: automated exposure control mA and/or kV adjustment per patient size (includes targeted exam s where dose is matched to clinical indication) or iterative reconstruction.
[2025-05-08] MEDS: IOHEXOL 300 MG/ML 100ML BOTTLE IJ ONE (01:47)
[2025-05-08 05:40] LABS: Hematocrit 48.6 % (41.0-53.0); Hemoglobin 15.8 g/dL (13.5-17.5); Mean Corpuscular Hemoglobin 26.5 pg (28.0-32.0); Mean Corpuscular Volume 81.4 fL (80.0-100.0); Nucleated Red Blood Cells % 0.1 %
[2025-05-08] MEDS: SODIUM CHLORIDE 0.9% 2,050 ML IV ONE (05:41)
[2025-05-08] MEDS: cefTRIAXone 1GM/50ML D5W 50 ML IV ONE (05:41)
[2025-05-08 05:56] LABS: Alanine Aminotransferase 35 U/L (7-40); Alkaline Phosphatase 53 U/L (46-116); Anion Gap 13 (5-15); BUN/Creatinine Ratio 23.0 (10.0-20.0); Bilirubin, Total 0.5 mg/dL (0.2-1.0); Calcium 9.9 mg/dL (8.7-10.4); Carbon Dioxide 20 mmol/L (20-31); Chloride 98 mmol/L (98-107); Glucose 101 mg/dL (74-106); Potassium 5.1 mmol/L (3.5-5.1); Total Protein 7.9 g/dL (5.7-8.2)
[2025-05-08 05:59] LABS: Albumin 4.8 g/dL (3.2-4.8); Blood Urea Nitrogen 52 mg/dL (9-23); Sodium 131 mmol/L (136-145)
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
[2025-05-08] MEDS ORDERED: MORPHINE SULFATE INJ 2 MG/ml SYRG IV PRN (15:45)
[2025-05-08] MEDS: SODIUM CHLORIDE 0.9% 1,000 ML IV SCH (16:05)
[2025-05-08] MEDS: levETIRAcetam 500 MG TAB PO SCH (21:49)
[2025-05-08] MEDS: ASPirin-EC 81 mg tab PO SCH (21:50)
[2025-05-08] MEDS: CARVEDILOL 12.5 MG TAB PO SCH (21:51)
[2025-05-09 01:00] VITALS: BP 124/76; PULSE 76; RESP 16; TEMP 97.7; O2SAT 97
[2025-05-09 05:00] VITALS: BP 118/79; PULSE 86; RESP 14; TEMP 97.6; O2SAT 98
[2025-05-09 07:46] LABS: Hematocrit 41.7 % (41.0-53.0); Hemoglobin 13.9 g/dL (13.5-17.5); Mean Corpuscular Hemoglobin 26.5 pg (28.0-32.0); Mean Corpuscular Volume 79.4 fL (80.0-100.0); Nucleated Red Blood Cells % 0.1 %
[2025-05-09 08:00] VITALS: RESP 18
[2025-05-09 08:09] LABS: Chloride 106 mmol/L (98-107); Potassium 4.6 mmol/L (3.5-5.1)
[2025-05-09 08:10] LABS: Anion Gap 7 (5-15); Carbon Dioxide 21 mmol/L (20-31)
[2025-05-09 08:11] LABS: Calcium 9.4 mg/dL (8.7-10.4)
[2025-05-09 08:15] LABS: Glucose 90 mg/dL (74-106)
[2025-05-09 08:16] LABS: BUN/Creatinine Ratio 19.6 (10.0-20.0); Lipase 40 U/L (12-53)
[2025-05-09 08:19] LABS: Blood Urea Nitrogen 32 mg/dL (9-23); Sodium 134 mmol/L (136-145)
[2025-05-09] MEDS: cefTRIAXone 1GM/50ML D5W 50 ML IV SCH (08:19)
[2025-05-09] MEDS: HYDROcodone-ACET 5/325MG TAB PO PRN (08:25)
[2025-05-09] MEDS: EMPAGLIFLOZIN 10 MG TAB PO SCH (08:26)
[2025-05-09 09:00] VITALS: BP 129/87; PULSE 94; RESP 18; TEMP 98.4; O2SAT 98
[2025-05-09] MEDS ORDERED: METR-344 PO (12:15)
[2025-05-09] MEDS ORDERED: CIPR750T3 PO (12:16)
[2025-05-09 12:47] VITALS: BP 129/87; PULSE 84; TEMP 36.9
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
--- NOTE | 2025-05-12 10:55 | ECG ---
[facility] Test Date: 2025-05-07 Test Time: 12:18:48 Pat Name: WILL SIEGEL Department: ER Room: 0285 Gender: M Manager Procurement: TONE : 1950 Requested By: XIMENA WEINSTEIN Order Number: [id number] Reading MD: Measurements Intervals [place] Rate: 78 P: 48 AR: 147 QRS: -17 QRSD: 88 T: -50 QT: 386 QTc: 440 Interpretive Statements Sinus rhythm Borderline left axis deviation Abnormal R-wave progression, early transition Nonspecific T abnormalities, diffuse leads Please click the below link to view image of tracing.
== END 2025-05-09 15:50 | disposition home or self-care (01) | DRG 391 ==
LOC: ER 12:05 → OVERFLOW 23:15 → EAST 05-08 03:09 → WEST WING 05-08 23:00
DX: A09 Infectious gastroenteritis and colitis, unspecified (principal); N17.0 Acute kidney failure with tubular necrosis; I16.1 Hypertensive emergency; E87.1 Hypo-osmolality and hyponatremia; I13.0 Hypertensive heart and chronic kidney disease with heart failure and stage 1 through stage 4 chronic kidney disease, or unspecified chronic kidney disease; E86.0 Dehydration; E11.22 Type 2 diabetes mellitus with diabetic chronic kidney disease; N18.9 Chronic kidney disease, unspecified; N40.0 Benign prostatic hyperplasia without lower urinary tract symptoms; G40.909 Epilepsy, unspecified, not intractable, without status epilepticus; R74.8 Abnormal levels of other serum enzymes; F12.10 Cannabis abuse, uncomplicated; I50.9 Heart failure, unspecified; Z79.899 Other long term (current) drug therapy; Z79.2 Long term (current) use of antibiotics; Z71.51 Drug abuse counseling and surveillance of drug abuser; Z87.891 Personal history of nicotine dependence
CPT/HCPCS: 36415; 71045; 74177; 80048; 80053; 80307; 81001; 83036; 83605; 83690; 84484; 85025; 93005; 96374; 96375; G0378; J2405; J3490

== ENCOUNTER 2025-07-12 12:02 | Outpatient (CLI) | payer MEDICARE, MEDICAID ==
[~2025-07-12 12:02] MED LIST changes: +CIPR750T3 PO; +METR-344 PO
[2025-07-12 12:58] LABS: Hematocrit 43.7 % (41.0-53.0); Hemoglobin 14.3 g/dL (13.5-17.5); Mean Corpuscular Hemoglobin 26.5 pg (28.0-32.0); Mean Corpuscular Volume 80.9 fL (80.0-100.0); Nucleated Red Blood Cells % 0.0 %
[2025-07-12 13:28] LABS: Alanine Aminotransferase 39 U/L (7-40); Albumin 5.1 g/dL (3.2-4.8); Alkaline Phosphatase 57 U/L (46-116); Anion Gap 8 (5-15); BUN/Creatinine Ratio 13.0 (10.0-20.0); Blood Urea Nitrogen 26 mg/dL (9-23); Calcium 10.4 mg/dL (8.7-10.4); Carbon Dioxide 29 mmol/L (20-31); Chloride 99 mmol/L (98-107); Glucose 97 mg/dL (74-106); Potassium 4.8 mmol/L (3.5-5.1); Sodium 136 mmol/L (136-145); Total Protein 9.1 g/dL (5.7-8.2); Triglycerides 97 mg/dL (< 150)
[2025-07-12 13:29] LABS: Bilirubin, Total 0.5 mg/dL (0.2-1.0); Cholesterol 218 mg/dL (< 200); HDL Cholesterol 54 mg/dL (40-59)
== END 2025-07-12 17:00 | disposition home or self-care (01) ==
LOC: LAB 12:02
PROVIDERS: ATTEND Internal Medicine
DX: I13.0 Hypertensive heart and chronic kidney disease with heart failure and stage 1 through stage 4 chronic kidney disease, or unspecified chronic kidney disease (principal); E11.22 Type 2 diabetes mellitus with diabetic chronic kidney disease; N18.31 Chronic kidney disease, stage 3a; I50.9 Heart failure, unspecified; Z00.01 Encounter for general adult medical examination with abnormal findings; Z12.11 Encounter for screening for malignant neoplasm of colon
CPT/HCPCS: 36415; 80053; 80061; 83036; 84439; 84443; 85025

== ENCOUNTER 2025-09-06 10:00 | Outpatient (CLI) | payer MEDICARE, MEDICAID ==
[2025-09-06 11:37] LABS: Alkaline Phosphatase 64 U/L (46-116); Anion Gap 8 (5-15); BUN/Creatinine Ratio 18.0 (10.0-20.0); Bilirubin, Total 0.5 mg/dL (0.2-1.0); Carbon Dioxide 27 mmol/L (20-31); Chloride 100 mmol/L (98-107); Glucose 95 mg/dL (74-106); Potassium 5.1 mmol/L (3.5-5.1)
[2025-09-06 11:50] LABS: Alanine Aminotransferase 43 U/L (7-40); Albumin 5.1 g/dL (3.2-4.8); Blood Urea Nitrogen 35 mg/dL (9-23); Calcium 10.9 mg/dL (8.7-10.4); Creatine Kinase IFCC 229 U/L (46-171); Sodium 135 mmol/L (136-145); Total Protein 9.2 g/dL (5.7-8.2)
== END 2025-09-06 17:00 | disposition home or self-care (01) ==
LOC: LAB 10:00
PROVIDERS: ATTEND Internal Medicine
DX: I13.0 Hypertensive heart and chronic kidney disease with heart failure and stage 1 through stage 4 chronic kidney disease, or unspecified chronic kidney disease (principal); E11.22 Type 2 diabetes mellitus with diabetic chronic kidney disease; N18.31 Chronic kidney disease, stage 3a; I50.9 Heart failure, unspecified
CPT/HCPCS: 36415; 80053; 82550